=== PATIENT | female | born 1965 | race Caucasian/White ===

== ENCOUNTER → 2017-07-05 | Outpatient (CLI) | payer OTHER ==
[~2017-07-05] MED LIST: EFFEXOR XR75 MG; ESTR0.624; IBUPROFEN800 MG PO; ZOFRAN4 MG PO
== END | disposition home or self-care (01) ==
LOC: RAD 501 09:05
DX: M24.511 Contracture, right shoulder (principal)

== ENCOUNTER 2020-06-11 09:00 | Outpatient (CLI) | payer OTHER | END 2020-06-11 09:10 | disposition home or self-care (01) | LOC: LAB 09:00 | PROVIDERS: ATTEND Orthopaedic Surgery | DX: D64.89 Other specified anemias (principal); D68.8 Other specified coagulation defects; N39.0 Urinary tract infection, site not specified; Z22.322 Carrier or suspected carrier of Methicillin resistant Staphylococcus aureus; E88.89 Other specified metabolic disorders; Z76.89 Persons encountering health services in other specified circumstances; I49.8 Other specified cardiac arrhythmias; I10 Essential (primary) hypertension ==

== ENCOUNTER 2024-10-07 11:28 | Emergency (ER) | payer OTHER ==
[~2024-10-07] VITALS: Ht 165.1 cm; Wt 56.7 kg
[2024-10-07] MEDS ORDERED: EVISTA60 MG PO (12:41)
[2024-10-07] MEDS ORDERED: PROTONIX20 MG PO (12:42)
[2024-10-07] MEDS ORDERED: ATORVASTATIN CA20 MG PO (12:42)
[2024-10-07] MEDS ORDERED: 0.9 % SODIUM CHLORIDE 1,000 ML IV SCH (14:45)
[2024-10-07] MEDS ORDERED: MORPHINE SULFATE 4 MG/ML VIAL IV ONE (14:45)
[2024-10-07] MEDS ORDERED: METRONIDAZOLE/SODIUM CHLORIDE 500 MG/100 ML PIGGYBACK IV ONE ×2 (14:45→15:19)
[2024-10-07 15:43] LABS: BASO % 0.9 % (0.1-1.2); EOS # 0.14 (0.04-0.54); EOS % 3.1 % (0.7-7.0); HEMATOCRIT 37.5 % (34.1-44.9); HEMOGLOBIN 13.1 g/dL (11.2-15.7); LYMPH # 1.87 (1.18-3.74); MEAN CORPUSCULAR HEMOGLOBIN 31.6 pg (25.6-32.2); MONO # 0.38 (0.24-0.82); MONO % 8.3 % (4.7-12.5); NEUT # 2.12 (1.56-6.13); NEUT % 46.5 % (34.0-71.1); PLATELET COUNT 213 K/uL (163-369); RED BLOOD COUNT 4.15 M/uL (3.93-5.22); RED CELL DISTRIBUTION WIDTH 12.5 % (11.6-14.4)
[2024-10-07 16:06] LABS: ALBUMIN 3.7 gm/dL (3.4-5.0); BILIRUBIN TOTAL 0.39 mg/dL (0.3-1.2); CALCIUM 9.1 mg/dL (8.5-10.1); CREATININE SERUM 0.69 mg/dL (0.55-1.02); GFR 87.38; GLOBULINA 3.5 G/DL (2.4-3.5); POTASSIUM 4.21 mEq/L (3.5-5.1); TOTAL PROTEIN 7.2 gm/dL (6.4-8.2)
[2024-10-07 16:55] LABS: PH,URINE 7.5 (5.0-8.0); URINE APPEARANCE Clear; URINE BILIRRUBIN Negative (NEGATIVE); URINE BLOOD Trace; URINE COLOR Yellow; URINE GLUCOSE Negative (NEGATIVE); URINE KETONE Negative (NEGATIVE); URINE LEUKOCYTE Negative; URINE NITRATE Negative; URINE PROTEIN Negative (NEGATIVE); URINE UROBILINOGEN 0.2 E.U./dl
[2024-10-07 16:58] LABS: URINE BACTERIA 26.8 uL (0.0-1933); URINE EPITHELIAL CELLS 1.5 uL (0.0-38.8); URINE RBC 19.2 uL (0.0-20.8)
[2024-10-07 17:01] LABS: URINE WBC 1.4 uL (0.0-23.2)
[2024-10-07] MEDS ORDERED: LEVSIN/SL0.125 MG SL (20:02)
[2024-10-07] MEDS ORDERED: PEPCID AC20 MG PO (20:02)
[2024-10-07] MEDS ORDERED: CIPRO500 MG PO (20:02)
[2024-10-07] MEDS ORDERED: METRONIDAZOLE500 MG PO (20:02)
[2024-10-07] MEDS ORDERED: PROBIOTIC1 EAC2 PO (20:02)
== END 2024-10-07 20:19 | disposition home or self-care (01) ==
LOC: ER 11:28
PROVIDERS: Emergency Medicine
DX: R10.32 Left lower quadrant pain (principal); E78.00 Pure hypercholesterolemia, unspecified; K57.32 Diverticulitis of large intestine without perforation or abscess without bleeding